=== PATIENT | female | born 1980 | race Caucasian/White ===

== ENCOUNTER 2017-03-31 14:19 | Emergency (ER) | payer BC ==
[~2017-03-31] VITALS: Ht 175.3 cm; Wt 76.7 kg
[~2017-03-31 14:19] MED LIST: IBUP-1050 PO
[2017-03-31 14:32] VITALS: TEMP 36.9; Ht 175.3 cm; Wt 76.7 kg
[2017-03-31 15:22] VITALS: O2SAT 100
[2017-03-31 16:08] LABS: URINE APPEARANCE CLEAR (CLEAR); URINE BILIRUBIN NEG (NEG); URINE COLOR YELLOW; URINE EPITHELIAL CELL AUTO 0-5 /lpf (0-5); URINE NITRITE NEG (NEG); URINE PH 8.5 (4.5-7.5); URINE SPECIFIC GRAVITY 1.016 (1.000-1.030); UROBILINOGEN NEG (NEG); ZZUR CULT IF INDIC CLEAN CATCH NO
[2017-03-31 16:13] LABS: MANUAL MICROSCOPIC REQUIRED? NO; REVIEW REQ? NO
[2017-03-31 16:16] LABS: BASO % 0.7 %; BASO ABS # 0.04 K/uL (0-0.2); COMPLETE YES; EOS % 1.7 %; HEMATOCRIT 37.4 % (37-47); IG% 0.2 %; LYMPH % 31.1 %; LYMPH ABS # 1.67 K/uL (1.2-3.4); MEAN CELL VOLUME 93.7 fL (80-100); MEAN CORPUSCULAR HEMOGLOBIN 31.3 pg (25-34); MEAN CORPUSCULAR HGB CONC 33.4 g/dl (32-36); MEAN PLATELET VOLUME 8.9 fL (7.4-10.4); MONO % 10.1 %; NEUT % 56.2 %; PLATELET COUNT 275 K/uL (130-400); RED BLOOD COUNT 3.99 M/uL (4.2-5.4); WHITE BLOOD COUNT 5.37 K/uL (4.8-10.8)
--- NOTE | 2017-03-31 16:21 | DIAGNOSTIC IMAGING REPORT ---
CHEST ONE VIEW PORTABLE CLINICAL HISTORY: Upper abdominal pain. COMPARISON STUDY: Chest radiograph March 23, 2015. FINDINGS: There is no lucency under the hemidiaphragms to suggest pneumoperitoneum on this exam. Lung volumes are normal. Lungs are clear. There is no pneumothorax or pleural effusion. Cardiac size is normal. Mediastinal contours are normal. There is no evidence of pulmonary edema. IMPRESSION: No acute cardiopulmonary findings. Electronically signed by: Haile Phipps M.D. 03/31/2017 4:20 PM Dictated Date/Time: 03/31/2017 4:19 PM
[2017-03-31 16:37] LABS: BUN/CREATININE RATIO 20.8 (10-20); CALCIUM 8.4 mg/dl (8.5-10.1); CREATININE 0.74 mg/dl (0.60-1.20); POTASSIUM 3.9 mmol/L (3.5-5.1)
[2017-03-31 16:46] LABS: PREG INTERNAL NEGATIVE QC NEG CLEAR BACKGROUND; PREG INTERNAL POSITIVE QC POS CONTROL LINE
[2017-03-31 16:47] LABS: ALB/GLOB RATIO 1.2 (0.9-2); THYROID STIMULATING HORMONE 0.753 uIu/ml (0.300-4.500)
--- NOTE | 2017-03-31 17:17 | EMERGENCY ROOM VISIT NOTE ---
History First contact with patient: 15:25 Chief Complaint: GI ASSESSMENT Stated Complaint: GURGLING/PULSATING IN STOMACH AREA, LIGHTHEADED History of Present Illness The patient is a 36 year old female who presents to the Emergency Room with complaints of abdominal discomfort and chest pain. The patient has a history of left-sided chest pain for the last one year. She states it is a constant dull ache. She has been seen in this emergency department for it. She states that nothing was ever found. The patient states that today she noticed pulsing in the center of her abdomen that lasted approximately an hour and a half. She states it has since stopped but she has never had anything similar in the past. The patient rates her pain a 3/10. She denies any fevers or chills. She denies any nausea, vomiting or diarrhea. She denies any shortness of breath. The patient did travel to [place] 2 weeks ago. She denies any extremity pain or swelling. She is a smoker. She states her grandmother of a ruptured brain aneurysm. She denies any falls or injuries. Review of Systems A 10 system review of systems was completed with positives and pertinent negatives listed in the HPI. Past Medical/Surgical History Medical Problems: (1) Intracranial hypertension, benign Surgical Problems: (1) Porter teeth extracted Social History Smoking Status: Never Smoker Marital Status: Housing Status: lives with family Occupation Status: employed Current/Historical Medications No Active Prescriptions or Reported Meds Allergies Coded Allergies: No Known Allergies (Unverified , 03/31/17) Physical Exam Vital Signs Date Time Temp Pulse Resp B/P (MAP) Pulse Ox O2 Delivery O2 Flow Rate FiO2 03/31/17 17:35 80 18 106/74 98 Room Air 03/31/17 15:26 65 03/31/17 15:22 100 Room Air 03/31/17 14:32 36.9 83 18 146/100 96 Room Air Physical Exam VITALS: Vitals are noted on the nurse's note and reviewed by myself. Vital signs stable. The patient is afebrile. She is not tachycardic, tachypneic or hypoxic. GENERAL: This is a 36-year-old female, in no acute distress, nondiaphoretic, well-developed well-nourished. SKIN: The skin was without rashes, erythema, edema, or bruising. There is no tenting of the skin. Capillary reflex less than 2 seconds. HEAD: Normocephalic atraumatic. EARS: The external ears are normal in appearance. EYES: Pupils equal round and reactive to light and accommodation. Conjunctivae without injection, sclerae without icterus. Extraocular movements intact. NOSE: Patent, turbinates without inflammation or discharge. MOUTH: Mucous membranes moist. Tonsils are not enlarged. Pharynx without erythema or exudate. Uvula midline. Airway patent. Tongue does not deviate. NECK: Supple without nuchal rigidity. No lymphadenopathy. No thyromegaly. Cervical spine is nontender. No JVD. HEART: Regular rate and rhythm without murmurs gallops or rubs. LUNGS: Clear to auscultation bilaterally without wheezes, rales or rhonchi. No retractions or accessory muscle use. ABDOMEN: Positive bowel sounds x 4. There are no abdominal bruits noted. Soft , nontender, without masses or organomegaly. Arroyo sign negative. MUSCULOSKELETAL: No muscle atrophy, erythema, or edema noted. Full range of motion without joint tenderness in all extremities Normal gait. Strength 5/5 throughout. NEURO: Patient was alert and oriented to person place and time. No focal neurological deficits. Medical Decision & Procedures ER Provider Diagnostic Interpretation: Ultrasound, aorta AORTIC ANEURYSM RETRO ANNEMARIE CLINICAL HISTORY: mid abdominal pain, pulsatile mass per patient mass TECHNIQUE: Ultrasound COMPARISON STUDY: None FINDINGS: Normal study. No evidence for aneurysm. IMPRESSION: Normal study CHEST ONE VIEW PORTABLE CLINICAL HISTORY: Upper abdominal pain. COMPARISON STUDY: Chest radiograph March 23, 2015. FINDINGS: There is no lucency under the hemidiaphragms to suggest pneumoperitoneum on this exam. Lung volumes are normal. Lungs are clear. There is no pneumothorax or pleural effusion. Cardiac size is normal. Mediastinal contours are normal. There is no evidence of pulmonary edema. IMPRESSION: No acute cardiopulmonary findings. Laboratory Results 03/31/17 16:05 Red Blood Count 3.99, Mean Corpuscular Volume 93.7, Mean Corpuscular Hemoglobin 31.3, Mean Corpuscular Hemoglobin Concent 33.4, Mean Platelet Volume 8.9, Neutrophils (%) (Auto) 56.2, Lymphocytes (%) (Auto) 31.1, Monocytes (%) (Auto) 10.1, Eosinophils (%) (Auto) 1.7, Basophils (%) (Auto) 0.7, Neutrophils # (Auto ) 3.02, Lymphocytes # (Auto) 1.67, Monocytes # (Auto) 0.54, Eosinophils # (Auto ) 0.09, Basophils # (Auto) 0.04 03/31/17 16:05 Test 03/31/17 15:25 03/31/17 16:05 03/31/17 16:12 03/31/17 16:16 Urine Color YELLOW Urine Appearance CLEAR (CLEAR) Urine pH 8.5 (4.5-7.5) Urine Specific [place] 1.016 (1.000-1.030) Urine Protein NEG (NEG) Urine Glucose (UA) NEG (NEG) Urine Ketones NEG (NEG) Urine Occult Blood TRACE (NEG) Urine Nitrite NEG (NEG) Urine Bilirubin NEG (NEG) Urine Urobilinogen NEG (NEG) Urine Leukocyte Esterase NEG (NEG) Urine WBC (Auto) 0 /hpf (0-5) Urine RBC (Auto) 0-4 /hpf (0-4) Urine Hyaline Casts (Auto) 0 /lpf (0-5) Urine Epithelial Cells (Auto) 0-5 /lpf (0-5) Urine Bacteria (Auto) NEG (NEG) White Blood Count 5.37 K/uL (4.8-10.8) Red Blood Count 3.99 M/uL (4.2-5.4) Hemoglobin 12.5 g/dL (12.0-16.0) Hematocrit 37.4 % (37-47) Mean Corpuscular Volume 93.7 fL (80-100) Mean Corpuscular Hemoglobin 31.3 pg (25-34) Mean Corpuscular Hemoglobin Concent 33.4 g/dl (32-36) Platelet Count 275 K/uL (130-400) Mean Platelet Volume 8.9 fL (7.4-10.4) Neutrophils (%) (Auto) 56.2 % Lymphocytes (%) (Auto) 31.1 % Monocytes (%) (Auto) 10.1 % Eosinophils (%) (Auto) 1.7 % Basophils (%) (Auto) 0.7 % Neutrophils # (Auto) 3.02 K/uL (1.4-6.5) Lymphocytes # (Auto) 1.67 K/uL (1.2-3.4) Monocytes # (Auto) 0.54 K/uL (0.11-0.59) Eosinophils # (Auto) 0.09 K/uL (0-0.5) Basophils # (Auto) 0.04 K/uL (0-0.2) RDW Standard Deviation 38.9 fL (36.4-46.3) RDW Coefficient of Variation 11.3 % (11.5-14.5) Immature Granulocyte % (Auto) 0.2 % Immature Granulocyte # (Auto) 0.01 K/uL (0.00-0.02) D-Dimer 240 ug/L FEU (0-500) Anion Gap 7.0 mmol/L (3-11) Est Creatinine Clear Calc Drug Dose 112.0 ml/min Estimated GFR () 122.5 Estimated GFR (Non- 105.7 BUN/Creatinine Ratio 20.8 (10-20) Calcium Level 8.4 mg/dl (8.5-10.1) Total Bilirubin 0.3 mg/dl (0.2-1) Aspartate Amino Transf (AST/SGOT) 14 U/L (15-37) Alanine Aminotransferase (ALT/SGPT) 21 U/L (12-78) Alkaline Phosphatase 50 U/L (45-117) Total Protein 6.9 gm/dl (6.4-8.2) Albumin 3.8 gm/dl (3.4-5.0) Globulin 3.1 gm/dl (2.5-4.0) Albumin/Globulin Ratio 1.2 (0.9-2) Lipase 91 U/L (73-393) Thyroid Stimulating Hormone (TSH) 0.753 uIu/ml (0.300-4.500) Human Chorionic Gonadotropin, Qual NEG (NEG) Bedside Troponin I < 0.030 ng/ml (0-0.045) Bedside Lactic Acid Venous 0.54 mmol/L (0.90-1.70) Procedure The patient was monitored on a card cutter. They maintained a normal sinus rhythm without ectopy. ECG Indication: chest pain Rate (beats per minute): 63 Rhythm: normal sinus Findings: no acute ischemic change Change: no significant change ED Course The patient was seen and examined. Previous visits were reviewed. The patient does not have a fever or leukocytosis. She does not have any significant electrolyte abnormalities. Troponin is not elevated. TSH is within normal limits. test was negative. D-dimer was not elevated. Urinalysis is negative. Chest x-ray does not reveal any acute abnormality Ultrasound of the abdomen does not reveal any significant abnormality or aneurysm. The patient presents to the emergency department with several complaints. She has had left-sided chest pain for the last one year. It has been constant and daily. Troponin is not elevated. She has also had recent travel but a d-dimer is not elevated. She reported a pulsatile mass in her mid abdomen earlier today that lasted for approximately 1.5 hours. It has completely resolved. There is no evidence for abdominal aortic aneurysm. The patient has no abdominal tenderness on examination. The patient should contact her family doctor to schedule a follow-up appointment for further evaluation and management. She should return to the ER with any worsening symptoms. The case was discussed with Dr. Willis who agrees with the assessment and treatment plan. Blood pressure screening: The patient was found to have normal blood pressure on screening and does not require follow-up Medication Reconciliation: I attest that I have personally reviewed the patient' s current medication list. Medical Decision DIFFERENTIAL DIAGNOSIS: Aortic dissection, myocarditis, pericarditis, cervical disc disease, costochondritis, herpes zoster, rib fracture, pleuritis, pneumonia , pulmonary embolus, tension pneumothorax, anxiety disorder, somatoform disorder , choledocholithiasis, status, esophagitis, esophageal spasm, esophageal reflux , esophageal rupture, pancreatitis, peptic ulcer disease, cardiac ischemia, ST elevation LA, acute coronary syndrome, arrhythmia, coronary artery vasospasm. vavular heart disease, coronary artery disease, among others. Impression Primary Impression: Left sided chest pain Additional Impression: Abdominal aortic pulsation Departure Information Dispostion Home / Self-Care Condition GOOD Prescriptions No Active Prescriptions or Reported Meds Referrals Mike Whitten, D.O. (PCP) Patient Instructions My [facility] [place] Additional Instructions Contact your family doctor to schedule a follow up appointment for further evaluation and management Return with worsening symptoms, abdominal pain, trouble breathing Problem Qualifiers
--- NOTE | 2017-03-31 17:33 | DIAGNOSTIC IMAGING REPORT ---
Ultrasound, aorta AORTIC ANEURYSM RETRO ANNEMARIE CLINICAL HISTORY: mid abdominal pain, pulsatile mass per patient mass TECHNIQUE: Ultrasound COMPARISON STUDY: None FINDINGS: Normal study. No evidence for aneurysm. IMPRESSION: Normal study Electronically signed by: Lior Aldridge M.D. 03/31/2017 5:31 PM Dictated Date/Time: 03/31/2017 5:31 PM
[2017-03-31 17:35] VITALS: BP 106/74; PULSE 80; O2SAT 98
== END 2017-03-31 18:14 | disposition home or self-care (01) ==
LOC: C.EDB 14:21 → C.EDA 18:14
DX: R07.9 Chest pain, unspecified (principal); I71.4 Abdominal aortic aneurysm, without rupture; I10 Essential (primary) hypertension

== ENCOUNTER → 2017-06-27 | Outpatient (CLI) | payer BC ==
[2017-06-27 08:26] LABS: HEMATOCRIT 39.7 % (37-47); MEAN CORPUSCULAR HGB CONC 34.8 g/dl (32-36); MEAN PLATELET VOLUME 9.1 fL (7.4-10.4); PLATELET COUNT 282 K/uL (130-400); RED BLOOD COUNT 4.18 M/uL (4.2-5.4); WHITE BLOOD COUNT 3.75 K/uL (4.8-10.8)
[2017-06-27 09:01] LABS: THYROID STIMULATING HORMONE 1.4 uIu/ml (0.300-4.500)
[2017-06-27 09:57] LABS: CALCULATED INSULIN SENSITIVITY 0.382; GLUCOSE LOG 1.9445; GLUCOSE,FASTING 88 mg/dl; INSULIN FASTING 4.7 mU/L (3-25); INSULIN LOG 0.6721; PROLACTIN 43.81 ng/mL
[2017-06-27 10:08] LABS: RUBELLA SCREEN IgG (AT CCH) IMMUNE (IMMUNE)
== END | disposition home or self-care (01) ==
LOC: C.LAB 07:59
PROVIDERS: ATTEND Obstetrics & Gynecology
DX: Z31.41 Encounter for fertility testing (principal)

== ENCOUNTER → 2017-07-06 | Outpatient (CLI) | payer BC ==
--- NOTE | 2017-07-06 11:43 | DIAGNOSTIC IMAGING REPORT ---
HYSTEROSALPINGOGRAM CLINICAL HISTORY: FERTILITY TESTING COMPARISON STUDY: No previous studies for comparison. FINDINGS: Fluoroscopic assistance was provided during hysterosalpingography. 24 seconds of fluoroscopic time was utilized. 4 fluoroscopic spot images were provided for interpretation. The uterus is somewhat T-shaped. Both fallopian tubes filled a normal fashion. There is free spillage bilaterally. IMPRESSION: Both fallopian tubes were patent. Electronically signed by: Marek Soria M.D. 07/06/2017 11:41 AM Dictated Date/Time: 07/06/2017 11:41 AM
--- NOTE | 2017-07-06 14:50 | OPERATIVE REPORT ---
DATE OF OPERATION: 07/06/2017 PREOPERATIVE DIAGNOSIS: Female infertility. POSTOPERATIVE DIAGNOSIS: Female infertility. PROCEDURE: Hystersalpingogram. SURGEON: Dr. Sandra. IMAGING: Dr. Soria. FINDINGS: Patent tubes bilaterally. DESCRIPTION OF PROCEDURE: Using sterile technique, speculum was placed in the vagina, single tooth tenaculum on anterior lip of the cervix. Cervical acorn device attached to the cervix, attached to the Allis. Then dye injected and imaging results obtained revealing a bilateral spill of both fallopian tubes. At the end of the procedure, the patient tolerated well. Instruments removed from the cervix and vagina. Sponge and instrument counts correct. I attest to the content of the Intraoperative Record and any orders documented therein. Any exception s are noted below.
== END | disposition home or self-care (01) ==
LOC: C.RAD 10:31
PROVIDERS: ATTEND Obstetrics & Gynecology
DX: Z31.41 Encounter for fertility testing (principal)

== ENCOUNTER → 2018-02-17 | Outpatient (CLI) | payer BC ==
[2018-02-17 11:33] LABS: PROLACTIN 38.62 ng/mL
[2018-02-17 12:12] LABS: HEP C IGG 13 YRS+OLDER_RFLX NEG (NEG)
== END | disposition home or self-care (01) ==
LOC: C.LABBC 08:25
PROVIDERS: ATTEND Specialist
DX: Z31.430 Encounter of female for testing for genetic disease carrier status for procreative management (principal); Z31.41 Encounter for fertility testing

== ENCOUNTER → 2018-05-30 | Outpatient (CLI) | payer BC | END | disposition home or self-care (01) | LOC: C.LAB1850 07:09 | PROVIDERS: ATTEND Specialist | DX: O09.00 Supervision of pregnancy with history of infertility, unspecified trimester (principal) ==

== ENCOUNTER 2019-08-21 09:07 | Inpatient (IN) ==
--- NOTE | 2019-08-14 14:22 | Anesthesiology Consultation ---
Date of Service August 14, 2019 Assessment & Plan (1) Encounter for pre-operative examination: Hx intracranial hypertension (2013)-- pressure headaches, vision changes, dizziness- was on medication x 6-9 months (symptoms resolved/medications discontinued). Reviewed with Dr. Alvarado. Chart Review Chart Review: Pending: Refer to Additional Notes / Consult section (pending preop labs) and Patient seen in Pre Admission Testing Teaching & Discussion Pre-Anesthesia Teaching/Discussion Notes: Instructed NPO after midnight before surgery,except medications with 15 cc of water. Medication instructions provided according to the PAT guidelines. History Surgery Operation Date: 08/21/19 10:30 Proposed Procedures p Primary Section Delivery - Quang Orellana MD Height/Weight Height: 5 ft 9 in Weight: 86.8 kg Allergies Allergy/AdvReac Type Severity Reaction Status Date / Time No Known Allergies Allergy Verified 08/10/19 09:21 Medications Home Medications Medication Instructions Recorded Confirmed Last Taken PNV cmb#95-ferrous fumarate-FA 1 tab PO DAILY 08/08/19 08/10/19 08/08/19 08:00 [] Past Medical History Medical History Intracranial hypertension, benign 2014 -- pressure headaches, vision changes, dizziness- was on medication x 6- 9 months (symptoms resolved/medications discontinued) Depression Hip dysplasia congenital Exercise / Class Metabolic Activity II 4-5 Yardwork/Stairs/Walk up hill Past Surgical History Surgical History History of gynecologic surgery IN VITRO PROCEDURE FOR EGG RETRIEVAL Hx of wisdom tooth extraction Past Anesthesia History No Hx of Anesthesia Complications and No Family Hx of Anesthesia Complications History of PONV No Hx of PONV and No Hx of Motion Sickness Social History Smoking Status: Former smoker Do You Dip or Chew Tobacco: No Smoking End Date: QUIT 5 YEARS AGO Hx Alcohol Use: No Hx Substance Use: No substance use type: does not use Review of Systems Mild related heartburn. Patient denies chest pain, shortness of breath, dyspnea on exertion, cough, wheezing, palpitations. Physical Exam Vital Signs VITALS BP 112/81 P 78 TEMP 97.9 SP02 98%RA RESP 18 PHYSICAL Full neck and c-spine range of motion. Full TMJ range of motion. TMD 3 finger breaths Mallampati Score 2 Dentition: intact Lungs: clear throughout to auscultation Cardiac: regular rate and rhythm, no murmurs noted Spine: normal Carotid arteries: negative bruit Extremities: no edema Testing Laboratory Results 08/14/19 14:03
[2019-08-14 14:26] LABS: Basophils # (auto) 0.02 K/uL (0-0.2); Basophils % (auto) 0.3 %; Eosinophils # (auto) 0.03 K/uL (0-0.5); Eosinophils % (auto) 0.4 %; Hematocrit (blood only) 40.4 % (37-47); Hemoglobin 14.4 g/dL (12.0-16.0); Immature Granulocytes # (auto) 0.02 K/uL (0.00-0.02); Immature Granulocytes % (auto) 0.3 %; Lymphocytes # (auto) 1.57 K/uL (1.2-3.4); Lymphocytes % (auto) 20.9 %; Mean Corpuscular Hemoglobin 33.1 pg (25-34); Mean Corpuscular Hgb Conc 35.6 g/dL (32-36); Mean Corpuscular Volume 92.9 fL (80-100); Mean Platelet Volume 9.9 fL (7.4-10.4); Monocytes # (auto) 0.68 K/uL (0.11-0.59); Monocytes % (auto) 9.1 %; Neutrophils # (auto) 5.19 K/uL (1.4-6.5); Platelet Count 305 K/uL (130-400); RDW Coefficient of Variation 11.8 % (11.5-14.5); Red Blood Count 4.35 M/uL (4.2-5.4); White Blood Count 7.51 K/uL (4.8-10.8)
[~2019-08-21 09:07] MED LIST changes: +CEFAZOLIN 2,000 MG in SYRINGE 0 ML IV SCH; +CITRIC ACID/SODIUM CITRATE 15 ML UDC PO SCH; -IBUP-1050 PO; +LACTATED RINGER'S 1,000 ML IV SCH
[2019-08-21] MEDS ORDERED: OXYTOCIN 10 UNITS/ML VIAL ONE ×2 (11:20→13:28)
[2019-08-21] MEDS ORDERED: MoRPHine SULFATE PF 1 MG/ML 10 ML AMP/VIAL ONE (11:21)
[2019-08-21] MEDS ORDERED: fentaNYL citrate 100 MCG/2 ML VIAL ONE (11:21)
[2019-08-21] MEDS ORDERED: ONDANSETRON INJ 2 MG/ML 2 ML VIAL IV PRN ×2 (11:53→13:06)
[2019-08-21] MEDS ORDERED: DiphenhydrAMINE HCL 50 MG/ML VIAL IV PRN ×2 (11:53→13:06)
[2019-08-21] MEDS ORDERED: BENZOCAINE 20% AER SPR 82.5 GM CAN EXT PRN (11:53)
[2019-08-21] MEDS ORDERED: SENNA 8.6 MG TAB PO PRN (11:53)
[2019-08-21] MEDS ORDERED: OXYCODONE/ACETAMINOPHEN 5mg/325mg TAB PO PRN (11:53)
[2019-08-21] MEDS ORDERED: HYDROCORTISONE ACETATE 25 MG SUPP PR PRN (11:53)
[2019-08-21] MEDS ORDERED: DIPHTHERIA/TETANUS/PERTUSSIS 0.5 ML SYR/VIAL IM ONE (11:53)
[2019-08-21] MEDS ORDERED: PROMETHAZINE HCL 25 MG in SODIUM CHLORIDE 0.9% 50 ML IV PRN ×2 (11:53→13:06)
[2019-08-21] MEDS ORDERED: KETOROLAC 30 MG/ML VIAL IV PRN (11:53)
[2019-08-21] MEDS ORDERED: MAGNESIUM HYDROXIDE SUSP 30 ML UDC PO PRN (11:53)
[2019-08-21] MEDS ORDERED: SUPERCREAM 0.870% 15 GM JAR EXT PRN (11:53)
[2019-08-21] MEDS ORDERED: LACTATED RINGER'S 1,000 ML IV SCH ×3 (12:00→14:20)
--- NOTE | 2019-08-21 12:14 | History & Physical Bridge Note ---
Date of Service August 21, 2019 History & Physical Bridge Note I have examined the patient, reviewed the History & Physical and in the interval since the performance of the History & Physical I have noted the following changes of clinical significance: no changes noted Bed side US: Complete breech presentation FHR 140's She desires Primary C Section as scheduled All questions were answered
[2019-08-21] MEDS ORDERED: ePHEDrine sulfate 50 MG/ML AMP IV PRN (13:06)
[2019-08-21] MEDS ORDERED: NALOXONE HCL 1 MG in SODIUM CHLORIDE 0.9% 1000ML 1,000 ML IV PRN (13:06)
[2019-08-21] MEDS ORDERED: NALOXONE HCL 0.4 MG/1 ML VIAL/CARP IV PRN (13:06)
[2019-08-21] MEDS ORDERED: NALOXONE HCL 0.08 MG in SYRINGE 1.8 ML IV PRN (13:06)
[2019-08-21] MEDS ORDERED: MoRPHine SULFATE PF 1 MG/ML 10 ML AMP/VIAL INT SPINAL ONE (13:06)
[2019-08-21] MEDS ORDERED: LACTATED RINGER'S 500 ML IV PRN (13:06)
[2019-08-21] MEDS ORDERED: NALBUPHINE HCL INJ 10 MG/ML AMP IV PRN (13:06)
[2019-08-21] MEDS ORDERED: HYDROmorphone INJ 0.5 MG/0.5 ML SYR IV PRN (13:06)
[2019-08-21] MEDS ORDERED: NO NARCOTICS OR SEDATIVES SCH (13:15)
[2019-08-21] MEDS ORDERED: SODIUM CHLORIDE 0.9% 1000ML 1,000 ML IV SCH (13:15)
[2019-08-21] MEDS ORDERED: DC INTRASPINAL MORPHINE SCH (13:15)
[2019-08-21] MEDS ORDERED: ONDANSETRON INJ 2 MG/ML 2 ML VIAL ONE (13:35)
--- NOTE | 2019-08-21 14:09 | Post Operative Brief Note ---
Immediate Post Op Note v1 Date of Surgery August 21, 2019 Pre & Post Diagnosis Operation Date: 08/21/19 11:10 Pre-Op Diagnosis: Breech presentation at term Post-Op Diagnosis: Same as pre-op I identified the patient and participated in the time-out.: Yes Procedure Operation Date: 08/21/19 11:10 Actual Procedures p Section in LD, delivery of live female child at 1321(Not Applicable) - Quang Orellana MD Surgeon Quang Orellana MD Irrigation Laborer RONY Simpson Estimated Blood Loss 600 Findings Consistent with Post-Op Diagnosis Fluids 2300 ML LR Drains Le Catheter (100 ML CLEAR) Anesthesia Type Spinal Complications none Disposition Accompanied Patient To Recovery: Yes Disposition: L&D
[2019-08-21] MEDS ORDERED: SURGICEL ABSORB HEMOSTAT 2IN X 14IN TOP ONE (14:43)
--- NOTE | 2019-08-21 15:12 | Operative Report ---
DATE OF OPERATION: 08/21/2019 PREOPERATIVE DIAGNOSES: The patient is a 38-year-old G1, P0, at 39 weeks and 3 days of gestation, persistent breech presentation at term, declined external cephalic version, desires primary section. POSTOPERATIVE DIAGNOSES: The patient is a 38-year-old G1, P0, at 39 weeks and 3 days of gestation, persistent breech presentation at term, declined external cephalic version, desires primary section. PROCEDURE: Primary low transverse with Pfannenstiel skin incision. SURGEON: Quang Orellana MD TRANSPORT ENGINEER: RONY Simpson. ESTIMATED BLOOD LOSS: 600 mL. FLUIDS: 2300 mL of lactated ringer's. DRAINS: Le catheter drained 100 mL of clear urine. ANESTHESIA: Spinal, Dr. Arora. COMPLICATIONS: None. FINDINGS: Baby was a viable female infant delivered at 1321 in the afternoon in complete breech presentation, Apgars were 8/9 and weight was 2730 grams (6 pounds). DESCRIPTION OF PROCEDURE: The patient was taken to the operating room where spinal anesthesia was given without difficulty. She was placed in dorsal supine position with a leftward tilt. She was prepared and draped in the usual sterile fashion. A Pfannenstiel skin incision was made and carried through to the underlying layer of fascia with the Bovie. Fascia was incised in the midline and incision was extended laterally with the help of Rodriguez scissors. Lower aspect of the fascial incision was then grasped with 2 Heather clamps, elevated, underlying rectus muscles were dissected off sharply with Rodriguez scissors. Upper aspect of the fascial incision was then grasped with 2 Heather clamps, elevated, underlying rectus muscles were dissected off sharply with Rodriguez scissors. Rectus muscles were in the midline and the peritoneum was entered bluntly with fingers. Peritoneal incision was extended superiorly and inferiorly with good visualization of the bladder. Bladder blade was inserted. Vesicouterine peritoneum was identified, grasped with pickups, entered sharply with Metzenbaum scissors and bladder flap was created digitally and bladder blade was reinserted. Lower uterine segment was incised in transverse fashion, incision was extended laterally with the help of bandage scissors. Membranes were ruptured. Clear fluid was obtained. Baby's buttocks with the feet together were the presenting part. The Feet and legs were delivered first and then the buttocks and then the body and then arms and then the head without difficulty. Baby was dried and mouth and nose were suctioned on mother. The patient requested to collect cord blood for private banking. Per the kit instruction, delayed cord clamp was done at 45 seconds. Baby was handed to the waiting pediatric team with Dr. Yap. Then cord blood was collected in its special bag as instructed and then placenta was delivered manually as intact and complete. Uterus was exteriorized, cleared of all clots and debris. Fundus was firm. There found to be very small, about half centimeter in size subserosal fibroids on the posterior uterus and the fundus and there noted to be a 2 x 2 cm posterior submucous leiomyoma during the manual exam of uterine cavity. Uterine incision was repaired with 0 Vicryl in a running locked fashion and a second imbricating layer was placed with 0 Vicryl in a running locked fashion. Excellent hemostasis was achieved. Cul-de-sac was irrigated with warm normal saline and suctioned. and then the uterus was returned to the patient's abdomen. The pelvis was irrigated with warm normal saline and suctioned and incision was checked again hemostatic. Parietal peritoneum was reapproximated with 3-0 Vicryl in a running fashion and the rectus muscles were reapproximated with the same suture in a running fashion and excellent hemostasis was achieved on the muscles and under the fascia. The rectal fascia was reapproximated with 0 Vicryl in a running fashion. Subcuticular fat tissue was brought together with 3-0 Vicryl in a running fashion. Skin was closed with 4-0 Monocryl in a subcuticular fashion. The patient tolerated the procedure well. Sponge, lap, needle count was correct x3. No complications happened. I was present during whole procedure. The patient was given 2 grams of cefazolin before surgery. She was taken to recovery room in stable condition. I attest to the content of the Intraoperative Record and any orders documented therein. Any exceptions are noted below. SHANNOND
--- NOTE | 2019-08-21 15:38 | Anesthesiology Progress Note ---
Date of Service August 21, 2019 Anesthesia Post Procedure Vital Signs Vital Signs: Temp Pulse Pulse Resp BP BP Pulse Ox 08/21/19 15:36 70 100 08/21/19 15:31 68 100 08/21/19 15:28 61 128/85 08/21/19 15:26 66 96 08/21/19 15:21 75 99 08/21/19 15:18 67 135/91 08/21/19 15:16 71 99 08/21/19 15:11 70 99 08/21/19 15:08 67 67 130/86 130/86 08/21/19 15:06 66 98 08/21/19 15:01 64 99 08/21/19 14:58 63 63 20 129/81 129/81 08/21/19 14:56 64 97 08/21/19 14:51 65 97 08/21/19 14:48 65 138/78 08/21/19 14:46 71 98 08/21/19 14:45 18 08/21/19 14:40 73 99 08/21/19 14:38 67 141/78 H 08/21/19 14:35 69 18 99 08/21/19 14:30 73 96 08/21/19 14:28 71 132/75 92 08/21/19 14:25 71 18 100 08/21/19 14:20 64 100 08/21/19 14:15 36.4 C L 71 18 120/67 99 08/21/19 12:27 74 100 08/21/19 12:22 71 100 08/21/19 12:17 71 99 08/21/19 12:12 69 100 08/21/19 12:07 72 100 08/21/19 12:02 73 100 08/21/19 11:57 73 100 08/21/19 11:52 72 100 08/21/19 09:40 69 136/90 08/21/19 09:37 36.7 C 16 Transfer of Care Handoff Completed per policy Notes Mental Status: alert / awake / arousable Patient Amnestic to Procedure: Yes Nausea / Vomiting: adequately controlled Pain: adequately controlled Airway Patency, RR, SpO2: stable & adequate BP & HR: stable & adequate Hydration State: stable & adequate Neuraxial Anesthesia: was administered and sensory block is resolving Anesthetic Complications: no major complications apparent and Pt Satisfied with anesthetic care
[2019-08-21] MEDS: OXYTOCIN 20 UNITS in LACTATED RINGER'S 1,000 ML IV SCH (16:49)
[2019-08-21] MEDS: KETOROLAC 30 MG/ML VIAL IV PRN ×2 (17:35→23:37)
[2019-08-21] MEDS: DOCUSATE SODIUM 100 MG CAP PO SCH (20:40)
[2019-08-21] MEDS ORDERED: LACTATED RINGER'S 500 ML IV ONE (22:11)
--- NOTE | 2019-08-21 22:15 | Obstetrical Progress Note ---
Date of Service August 21, 2019 Subjective Patient is seen and examined. She feels well, no complaints. Pain is under control with oral meds. Tolerating clear diet with out N&V Flatus negative BM Bleeding is minimal No LOVELL/ Change in vision/fever/ chills/ CP/ SOB/ N&V/ Leg pain Breast feeding feeding without problems Vital Signs Temp Pulse Pulse Resp BP BP BP 08/21/19 22:02 18 08/21/19 21:12 18 08/21/19 20:10 36.4 C L 73 18 133/84 08/21/19 19:15 18 08/21/19 17:03 36.3 C L 69 19 132/89 136/89 08/21/19 16:21 65 08/21/19 16:18 36.3 C L 64 20 143/82 H 08/21/19 16:16 65 08/21/19 16:11 65 08/21/19 16:08 67 133/87 08/21/19 16:06 76 08/21/19 16:01 66 08/21/19 15:58 71 125/87 08/21/19 15:56 68 08/21/19 15:51 66 08/21/19 15:48 68 20 132/86 08/21/19 15:46 71 08/21/19 15:41 76 08/21/19 15:38 67 141/90 H 08/21/19 15:36 70 08/21/19 15:31 68 08/21/19 15:28 61 128/85 08/21/19 15:26 66 08/21/19 15:21 75 08/21/19 15:19 20 08/21/19 15:18 36.3 C L 67 20 135/91 08/21/19 15:16 71 08/21/19 15:11 70 08/21/19 15:08 67 67 130/86 130/86 08/21/19 15:06 66 08/21/19 15:01 64 08/21/19 14:58 63 63 20 129/81 129/81 08/21/19 14:56 64 08/21/19 14:51 65 08/21/19 14:48 65 138/78 08/21/19 14:46 71 08/21/19 14:45 18 08/21/19 14:40 73 08/21/19 14:38 67 141/78 H 08/21/19 14:35 69 18 08/21/19 14:30 73 08/21/19 14:28 71 132/75 08/21/19 14:25 71 18 08/21/19 14:20 64 08/21/19 14:15 36.4 C L 71 18 120/67 08/21/19 12:27 74 08/21/19 12:22 71 08/21/19 12:17 71 08/21/19 12:12 69 08/21/19 12:07 72 08/21/19 12:02 73 08/21/19 11:57 73 08/21/19 11:52 72 Pulse Ox Pulse Ox 08/21/19 22:02 100 08/21/19 21:12 100 08/21/19 20:10 100 08/21/19 19:15 100 08/21/19 17:03 100 100 08/21/19 16:21 100 08/21/19 16:18 08/21/19 16:16 100 08/21/19 16:11 100 08/21/19 16:08 08/21/19 16:06 100 08/21/19 16:01 100 08/21/19 15:58 08/21/19 15:56 100 08/21/19 15:51 100 08/21/19 15:48 08/21/19 15:46 99 08/21/19 15:41 100 08/21/19 15:38 08/21/19 15:36 100 08/21/19 15:31 100 08/21/19 15:28 08/21/19 15:26 96 08/21/19 15:21 99 08/21/19 15:19 08/21/19 15:18 08/21/19 15:16 99 08/21/19 15:11 99 08/21/19 15:08 08/21/19 15:06 98 08/21/19 15:01 99 08/21/19 14:58 08/21/19 14:56 97 08/21/19 14:51 97 08/21/19 14:48 08/21/19 14:46 98 08/21/19 14:45 08/21/19 14:40 99 08/21/19 14:38 08/21/19 14:35 99 08/21/19 14:30 96 08/21/19 14:28 92 08/21/19 14:25 100 08/21/19 14:20 100 08/21/19 14:15 99 08/21/19 12:27 100 08/21/19 12:22 100 08/21/19 12:17 99 08/21/19 12:12 100 08/21/19 12:07 100 08/21/19 12:02 100 08/21/19 11:57 100 08/21/19 11:52 100 Intake & Output 08/21/19 08/21/19 08/21/19 06:59 14:59 22:59 Output Total 200 / 200 Balance -200 / -200 Weight 84.368 kg Output: Urine Amount (Catheter) 200 / 200 Le/Indwelling 200 / 200 UOP 100 ml / 5 hours PE: General: Alert, orientedx3, NAD CVS: S1S2 RRR Lungs; CTAB Abd: soft, NT, ND, BS+, fundus firm, below Umbilicus Incision: Clean, dry, intact Perineum intact, Lochia rubra minimal Ext; NT, no edema, SVCDs on AP: 38 yo s/p C Section, pod# 0 VSS, borderline BP's, asymptomatic LOW UOP, most likely dehydrated, 3rd Csection of the day Afebrile doing well Plan labs, IVF bolus Continue to monitor closely All questions were answered Results & Data Vital Signs (Past 12 Hours) Vital Signs Temp Pulse Pulse Resp BP BP BP 08/21/19 22:02 18 08/21/19 21:12 18 08/21/19 20:10 36.4 C L 73 18 133/84 08/21/19 19:15 18 08/21/19 17:03 36.3 C L 69 19 132/89 136/89 08/21/19 16:21 65 08/21/19 16:18 36.3 C L 64 20 143/82 H 08/21/19 16:16 65 08/21/19 16:11 65 08/21/19 16:08 67 133/87 08/21/19 16:06 76 08/21/19 16:01 66 08/21/19 15:58 71 125/87 08/21/19 15:56 68 08/21/19 15:51 66 08/21/19 15:48 68 20 132/86 08/21/19 15:46 71 08/21/19 15:41 76 08/21/19 15:38 67 141/90 H 08/21/19 15:36 70 08/21/19 15:31 68 08/21/19 15:28 61 128/85 08/21/19 15:26 66 08/21/19 15:21 75 08/21/19 15:19 20 08/21/19 15:18 36.3 C L 67 20 135/91 08/21/19 15:16 71 08/21/19 15:11 70 08/21/19 15:08 67 67 130/86 130/86 08/21/19 15:06 66 08/21/19 15:01 64 08/21/19 14:58 63 63 20 129/81 129/81 08/21/19 14:56 64 08/21/19 14:51 65 08/21/19 14:48 65 138/78 08/21/19 14:46 71 08/21/19 14:45 18 08/21/19 14:40 73 08/21/19 14:38 67 141/78 H 08/21/19 14:35 69 18 08/21/19 14:30 73 08/21/19 14:28 71 132/75 08/21/19 14:25 71 18 08/21/19 14:20 64 08/21/19 14:15 36.4 C L 71 18 120/67 08/21/19 12:27 74 08/21/19 12:22 71 08/21/19 12:17 71 08/21/19 12:12 69 08/21/19 12:07 72 08/21/19 12:02 73 08/21/19 11:57 73 08/21/19 11:52 72 Pulse Ox Pulse Ox 08/21/19 22:02 100 08/21/19 21:12 100 08/21/19 20:10 100 08/21/19 19:15 100 08/21/19 17:03 100 100 08/21/19 16:21 100 08/21/19 16:18 08/21/19 16:16 100 08/21/19 16:11 100 08/21/19 16:08 08/21/19 16:06 100 08/21/19 16:01 100 08/21/19 15:58 08/21/19 15:56 100 08/21/19 15:51 100 08/21/19 15:48 08/21/19 15:46 99 08/21/19 15:41 100 08/21/19 15:38 08/21/19 15:36 100 08/21/19 15:31 100 08/21/19 15:28 08/21/19 15:26 96 08/21/19 15:21 99 08/21/19 15:19 08/21/19 15:18 08/21/19 15:16 99 08/21/19 15:11 99 08/21/19 15:08 08/21/19 15:06 98 08/21/19 15:01 99 08/21/19 14:58 08/21/19 14:56 97 08/21/19 14:51 97 08/21/19 14:48 08/21/19 14:46 98 08/21/19 14:45 08/21/19 14:40 99 08/21/19 14:38 08/21/19 14:35 99 08/21/19 14:30 96 08/21/19 14:28 92 08/21/19 14:25 100 08/21/19 14:20 100 08/21/19 14:15 99 08/21/19 12:27 100 08/21/19 12:22 100 08/21/19 12:17 99 08/21/19 12:12 100 08/21/19 12:07 100 08/21/19 12:02 100 08/21/19 11:57 100 08/21/19 11:52 100
[2019-08-21 22:45] LABS: Basophils # (auto) 0.02 K/uL (0-0.2); Basophils % (auto) 0.2 %; Eosinophils # (auto) 0.03 K/uL (0-0.5); Eosinophils % (auto) 0.3 %; Hematocrit (blood only) 32.7 % (37-47); Hemoglobin 11.5 g/dL (12.0-16.0); Immature Granulocytes # (auto) 0.02 K/uL (0.00-0.02); Immature Granulocytes % (auto) 0.2 %; Lymphocytes # (auto) 1.21 K/uL (1.2-3.4); Lymphocytes % (auto) 10.7 %; Mean Corpuscular Hgb Conc 35.2 g/dL (32-36); Mean Corpuscular Volume 93.7 fL (80-100); Mean Platelet Volume 9.4 fL (7.4-10.4); Monocytes # (auto) 0.81 K/uL (0.11-0.59); Monocytes % (auto) 7.2 %; Neutrophils # (auto) 9.21 K/uL (1.4-6.5); Neutrophils % (auto) 81.4 %; Platelet Count 219 K/uL (130-400); RDW Coefficient of Variation 11.7 % (11.5-14.5); RDW Standard Deviation 39.6 fL (36.4-46.3); Red Blood Count 3.49 M/uL (4.2-5.4)
[2019-08-21] MEDS: SIMETHICONE 80 MG CHEW PO SCH (22:59)
[2019-08-21 23:03] LABS: Albumin Level 2.1 gm/dl (3.4-5.0); BUN Creatinine Ratio 13.8 (10-20); Calcium 8.1 mg/dl (8.5-10.1); Creatinine Clr Calc Pharmacy 123.6 ml/min; Est GFR (African American) 122.8
[2019-08-21 23:06] LABS: Albumin Globulin Ratio 0.7 (0.9-2); Bilirubin,Total 0.4 mg/dl (0.2-1); Globulin 2.9 gm/dl (2.5-4.0)
[2019-08-22] MEDS: OXYTOCIN 20 UNITS in LACTATED RINGER'S 1,000 ML IV SCH (00:53)
[2019-08-22] MEDS ORDERED: LACTATED RINGER'S 1,000 ML IV SCH (05:15)
[2019-08-22] MEDS: KETOROLAC 30 MG/ML VIAL IV PRN (05:33)
[2019-08-22 06:46] LABS: Basophils # (auto) 0.01 K/uL (0-0.2); Basophils % (auto) 0.1 %; Eosinophils # (auto) 0.05 K/uL (0-0.5); Eosinophils % (auto) 0.5 %; Hematocrit (blood only) 29.2 % (37-47); Hemoglobin 10.6 g/dL (12.0-16.0); Immature Granulocytes # (auto) 0.02 K/uL (0.00-0.02); Immature Granulocytes % (auto) 0.2 %; Lymphocytes # (auto) 1.12 K/uL (1.2-3.4); Lymphocytes % (auto) 10.7 %; Mean Corpuscular Hemoglobin 33.1 pg (25-34); Mean Corpuscular Hgb Conc 36.3 g/dL (32-36); Mean Corpuscular Volume 91.3 fL (80-100); Mean Platelet Volume 9.3 fL (7.4-10.4); Monocytes # (auto) 0.92 K/uL (0.11-0.59); Monocytes % (auto) 8.8 %; Neutrophils # (auto) 8.34 K/uL (1.4-6.5); Neutrophils % (auto) 79.7 %; Platelet Count 202 K/uL (130-400); RDW Coefficient of Variation 11.6 % (11.5-14.5); White Blood Count 10.46 K/uL (4.8-10.8)
--- NOTE | 2019-08-22 07:52 | Obstetrical Progress Note ---
Date of Service August 22, 2019 Physical Exam Physical Exam: abdomen soft and non tender incision is clean and dry bandage removed vaginal bleeding scant hgb 10.6 no calf tenderness bowel sounds active and normal ambulating well Results & Data Vital Signs (Past 12 Hours) Vital Signs Temp Pulse Resp BP Pulse Ox 08/22/19 05:37 18 97 08/22/19 04:05 36.8 C 85 18 119/77 98 08/22/19 03:10 18 98 08/22/19 02:00 18 98 08/22/19 01:10 18 99 08/22/19 00:05 18 100 08/21/19 23:00 36.4 C L 74 18 135/84 100 08/21/19 22:02 18 100 08/21/19 21:12 18 100 08/21/19 20:10 36.4 C L 73 18 133/84 100
[2019-08-22] MEDS ORDERED: FERROUS SULFATE 325 MG TAB PO SCH (08:00)
[2019-08-22] MEDS: SIMETHICONE 80 MG CHEW PO SCH ×6 (09:28→20:51)
[2019-08-22] MEDS: DOCUSATE SODIUM 100 MG CAP PO SCH ×2 (09:29→20:51)
[2019-08-22] MEDS: IBUPROFEN 600 MG TAB PO PRN ×4 (09:30→23:23)
[2019-08-22] MEDS: PRENATAL VITAMIN 1 TAB PO SCH (09:30)
--- NOTE | 2019-08-22 10:05 | Anesthesiology Progress Note ---
Date of Service August 22, 2019 Anesthesia Post Procedure Vital Signs Vital Signs: Temp Pulse Pulse Resp BP BP BP 08/22/19 08:00 36.4 C L 80 18 121/78 08/22/19 05:37 18 08/22/19 04:05 36.8 C 85 18 119/77 08/22/19 03:10 18 08/22/19 02:00 18 08/22/19 01:10 18 08/22/19 00:05 18 08/21/19 23:00 36.4 C L 74 18 135/84 08/21/19 22:02 18 08/21/19 21:12 18 08/21/19 20:10 36.4 C L 73 18 133/84 08/21/19 19:15 18 08/21/19 17:03 36.3 C L 69 19 132/89 136/89 08/21/19 16:21 65 08/21/19 16:18 36.3 C L 64 20 143/82 H 08/21/19 16:16 65 08/21/19 16:11 65 08/21/19 16:08 67 133/87 08/21/19 16:06 76 08/21/19 16:01 66 08/21/19 15:58 71 125/87 08/21/19 15:56 68 08/21/19 15:51 66 08/21/19 15:48 68 20 132/86 08/21/19 15:46 71 08/21/19 15:41 76 08/21/19 15:38 67 141/90 H 08/21/19 15:36 70 08/21/19 15:31 68 08/21/19 15:28 61 128/85 08/21/19 15:26 66 08/21/19 15:21 75 08/21/19 15:19 20 08/21/19 15:18 36.3 C L 67 20 135/91 08/21/19 15:16 71 08/21/19 15:11 70 08/21/19 15:08 67 67 130/86 130/86 08/21/19 15:06 66 08/21/19 15:01 64 08/21/19 14:58 63 63 20 129/81 129/81 08/21/19 14:56 64 08/21/19 14:51 65 08/21/19 14:48 65 138/78 08/21/19 14:46 71 08/21/19 14:45 18 08/21/19 14:40 73 08/21/19 14:38 67 141/78 H 08/21/19 14:35 69 18 08/21/19 14:30 73 08/21/19 14:28 71 132/75 08/21/19 14:25 71 18 08/21/19 14:20 64 08/21/19 14:15 36.4 C L 71 18 120/67 08/21/19 12:27 74 08/21/19 12:22 71 08/21/19 12:17 71 08/21/19 12:12 69 08/21/19 12:07 72 08/21/19 12:02 73 08/21/19 11:57 73 08/21/19 11:52 72 Pulse Ox Pulse Ox 08/22/19 08:00 96 08/22/19 05:37 97 08/22/19 04:05 98 08/22/19 03:10 98 08/22/19 02:00 98 08/22/19 01:10 99 08/22/19 00:05 100 08/21/19 23:00 100 08/21/19 22:02 100 08/21/19 21:12 100 08/21/19 20:10 100 08/21/19 19:15 100 08/21/19 17:03 100 100 08/21/19 16:21 100 08/21/19 16:18 08/21/19 16:16 100 08/21/19 16:11 100 08/21/19 16:08 08/21/19 16:06 100 08/21/19 16:01 100 08/21/19 15:58 08/21/19 15:56 100 08/21/19 15:51 100 08/21/19 15:48 08/21/19 15:46 99 08/21/19 15:41 100 08/21/19 15:38 08/21/19 15:36 100 08/21/19 15:31 100 08/21/19 15:28 08/21/19 15:26 96 08/21/19 15:21 99 08/21/19 15:19 08/21/19 15:18 08/21/19 15:16 99 08/21/19 15:11 99 08/21/19 15:08 08/21/19 15:06 98 08/21/19 15:01 99 08/21/19 14:58 08/21/19 14:56 97 08/21/19 14:51 97 08/21/19 14:48 08/21/19 14:46 98 08/21/19 14:45 08/21/19 14:40 99 08/21/19 14:38 08/21/19 14:35 99 08/21/19 14:30 96 08/21/19 14:28 92 08/21/19 14:25 100 08/21/19 14:20 100 08/21/19 14:15 99 08/21/19 12:27 100 08/21/19 12:22 100 08/21/19 12:17 99 08/21/19 12:12 100 08/21/19 12:07 100 08/21/19 12:02 100 08/21/19 11:57 100 08/21/19 11:52 100 Pain Intensity Bilateral Abdomen: Pain Intensity: 1 Transfer of Care Handoff Completed per policy Notes Mental Status: alert / awake / arousable and participated in evaluation Nausea / Vomiting: adequately controlled Pain: adequately controlled Airway Patency, RR, SpO2: stable & adequate BP & HR: stable & adequate Hydration State: stable & adequate Neuraxial Anesthesia: was administered and sensory block resolved Anesthetic Complications: no major complications apparent and Pt Satisfied with anesthetic care Notes: Pt c/o of mild leg edema - encouraged to share this with Ob team. Patient denies headache this morning. Has been up walking without weakness or residual numbness. Patient encouraged to contact anesthesia for any concerns or new headache.
[2019-08-22] MEDS ORDERED: BISACODYL 5 MG TABEC PO SCH (20:00)
[2019-08-22] MEDS ORDERED: ACETAMINOPHEN 325 MG TAB PO PRN (21:08)
[2019-08-23] MEDS: IBUPROFEN 600 MG TAB PO PRN ×3 (03:12→11:26)
[2019-08-23] MEDS: SIMETHICONE 80 MG CHEW PO SCH ×2 (07:49→17:44)
[2019-08-23] MEDS: PRENATAL VITAMIN 1 TAB PO SCH (07:49)
[2019-08-23] MEDS: DOCUSATE SODIUM 100 MG CAP PO SCH (07:50)
[2019-08-23 07:53] LABS: Hematocrit (blood only) 32.9 % (37-47); Hemoglobin 11.2 g/dL (12.0-16.0)
--- NOTE | 2019-08-23 09:51 | Obstetrical Progress Note ---
Date of Service August 23, 2019 Assessment & Plan (1) delivery delivered: POD #2 pt doing well wishes to be discharged home d/c home with instructions Subjective Ambulation: ambulating normally Voiding: no voiding problems Passing Gas:: Yes Diet Tolerance:: clear liquids Lochia:: Small Feeding Type:: breast feeding Review of Systems All systems reviewed & are unremarkable except as noted in HPI & below Physical Exam Constitutional WD/WN, vitals as above well developed and well nourished Eyes PERRL, conjunctivae normal, anicteric sclerae ENMT external ear and nose normal, oropharynx normal Neck trachea midline, no thyromegaly Respiratory normal respiratory effort, lungs clear to auscultation Cardiovascular RRR, no murmur, no edema Chest (Breasts) normal inspection/palpation of breasts Gastrointestinal (Abdomen) normal bowel sounds, soft, nontender, no hepatosplenomegaly Musculoskeletal no cyanosis or clubbing, extremities motor strength 5/5 Skin no rashes, warm and dry + incision (Clean,dry and intact) Neurologic patellar DTR's 2+ bilat, sensation intact Psychiatric A+Ox3, euthymic affect Genitourinary normal external appearance Lymphatic no cervical or axillary lymphadenopathy Results & Data Vital Signs (Past 12 Hours) Vital Signs Temp Pulse Resp BP Pulse Ox 08/22/19 23:20 36.6 C 77 16 119/75 96
[2019-08-23] MEDS ORDERED: BISACODYL 10 MG SUPP PR PRN (11:53)
--- NOTE | 2019-08-25 01:36 | Discharge Summary ---
DETAILS OF ADMISSION: The patient is a 38-year-old G1, P0 at 39 weeks and 3 days of gestation who presented to Labor and Delivery on 08/21/2019 for scheduled primary for persistent breech presentation at term. Declined external cephalic version. She had a primary low transverse , delivered a viable female infant in a breech presentation. See dictated operative note for details. Over the postoperative period, the patient was doing well. Vital signs stable, afebrile. Urine output was adequate. Her dressing was clean, dry and intact. Tolerating regular diet. Fundus was firm. Bleeding was minimal. On postoperative day #1, the patient was doing well. Le was discontinued. She was ambulated, tolerated regular diet, passing gas. Vital signs stable, afebrile. Her H and H were stable at 10.6 and 29.2. On postoperative day #2, the patient was doing well. Vital signs stable, afebrile, tolerating regular diet, passing gas, without problems. Her physical examination was unremarkable. Incision was clean, dry and intact. She desired to be discharged home on postoperative day #2. Discharge instructions were given. Prescriptions were written. She is to be seen in office in a week for incision check.
== END 2019-08-23 14:58 | disposition home or self-care (01) | DRG 788 ==
LOC: 4S2 09:07 → EDSTATUS 10:30

== ENCOUNTER 2022-05-19 05:34 | Inpatient (IN) ==
--- NOTE | 2022-05-07 15:04 | Anesthesiology Consultation ---
Date of Service May 07, 2022 Assessment & Plan (1) Encounter for pre-operative examination: Plan - idiopathic intracranial hypertension: 2013 -- pressure headaches, vision changes, dizziness- was on medication x 6-9 months (symptoms resolved/medications discontinued). 04/2022 denies any current issues..." s/p C- section 2019. - COVID screening: Per roofer applicator on 05/07/2022: Travel screen-returned from [place] 05/03, no known COVID-19 positive contacts or current COVID-19 related symptoms in past 2 weeks. Pt vaccinated. Surgeon arranging preop COVID testing, scheduled 05/17/2022. Awaiting results. Chart Review Chart Review: entry driver operator initiated History Surgery Operation Date: 05/19/22 07:30 Proposed Procedures p Section in LD - Quang Orellana MD Height/Weight Height: 5 ft 9 in Weight: 82.554 kg Allergies Allergy/AdvReac Type Severity Reaction Status Date / Time No Known Allergies Allergy Verified 05/07/22 14:32 Medications Home Medications Medication Instructions Recorded Confirmed Last Taken vit no.95-ferrous 1 tab PO DAILY 08/08/19 05/07/22 08/20/19 11:00 fumarate 28 mg-folic acid 800 mcg tablet () Past Medical History Medical History Depression hx Hip dysplasia congenital Intracranial hypertension, benign 2013 -- pressure headaches, vision changes, dizziness- was on medication x 6- 9 months (symptoms resolved/medications discontinued) 04/2022 denies any current issues Past Surgical History Surgical History (Updated 05/07/22 @ 15:01 by Monica Ferrer PA-C) History of gynecologic surgery IN [facility] PROCEDURE FOR EGG RETRIEVAL Hx of wisdom tooth extraction S/P section 2019: SAB L3-L4 1 attempt. Social History Smoking Status: Former smoker tobacco type: cigarettes Do You Dip or Chew Tobacco: No Smoking End Date: [id number] Hx Alcohol Use: No Hx Substance Use: No substance use type: does not use
[2022-05-19 05:51] LABS: Basophils # (auto) 0.03 K/uL (0-0.2); Basophils % (auto) 0.6 %; Eosinophils # (auto) 0.05 K/uL (0-0.50); Hematocrit (blood only) 39.4 % (34.1-44.9); Hemoglobin 14.1 g/dl (12.0-16.0); Immature Granulocytes # (auto) 0.02 K/uL (0.00-0.02); Immature Granulocytes % (auto) 0.4 %; Lymphocytes # (auto) 1.37 K/uL (1.2-3.4); Lymphocytes % (auto) 26.5 %; Mean Corpuscular Hemoglobin 33.5 pg (25.0-34.0); Mean Corpuscular Hgb Conc 35.8 g/dL (32.0-36.0); Mean Corpuscular Volume 93.6 fL (80.0-100.0); Mean Platelet Volume 9.9 fL (9.4-12.3); Monocytes # (auto) 0.62 K/uL (0.24-0.82); Neutrophils # (auto) 3.08 K/uL (1.4-6.5); Neutrophils % (auto) 59.5 %; Platelet Count 258 K/uL (130-400); RDW Coefficient of Variation 11.4 % (11.5-14.5); RDW Standard Deviation 38.3 fL (36.4-46.3); Red Blood Count 4.21 M/uL (3.93-5.22); White Blood Count 5.17 K/ul (4.8-10.8)
[2022-05-19] MEDS ORDERED: LACTATED RINGER'S 1,000 ML IV SCH (06:00)
[2022-05-19] MEDS ORDERED: CITRIC ACID/SODIUM CITRATE 15 ML UDC PO SCH (06:00)
[2022-05-19] MEDS ORDERED: ceFAZolin 2,000 MG in SYRINGE 0 ML IV SCH (06:00)
[2022-05-19] MEDS ORDERED: NALOXONE HCL 0.4 MG/1 ML VIAL/CARP IV PRN (07:25)
[2022-05-19] MEDS ORDERED: NALOXONE HCL 1 MG in SODIUM CHLORIDE 0.9% 1000ML 1,000 ML IV PRN (07:25)
[2022-05-19] MEDS ORDERED: ePHEDrine sulfate 50 MG/ML AMP IV PRN (07:25)
[2022-05-19] MEDS ORDERED: NALBUPHINE HCL INJ 10 MG/ML AMP IV PRN (07:25)
[2022-05-19] MEDS ORDERED: LACTATED RINGER'S 500 ML IV PRN (07:25)
[2022-05-19] MEDS ORDERED: diphenhydrAMINE 50 MG/ML VIAL IV PRN (07:25)
[2022-05-19] MEDS ORDERED: ONDANSETRON INJ 2 MG/ML 2 ML VIAL IV PRN ×2 (07:25→09:08)
[2022-05-19] MEDS ORDERED: NALOXONE HCL 0.08 MG in SYRINGE 1.8 ML IV PRN (07:25)
[2022-05-19] MEDS ORDERED: MoRPHine SULFATE PF 1 MG/ML 10 ML AMP/VIAL INT SPINAL ONE (07:25)
[2022-05-19] MEDS ORDERED: HYDROmorphone INJ 0.5 MG/0.5 ML SYR IV PRN (07:25)
[2022-05-19] MEDS ORDERED: fentaNYL citrate 100 MCG/2 ML VIAL ONE (07:29)
[2022-05-19] MEDS ORDERED: OXYTOCIN 10 UNITS/ML 10ML VIAL ONE (07:29)
[2022-05-19] MEDS ORDERED: MoRPHine SULFATE PF 1 MG/ML 10 ML AMP/VIAL ONE (07:29)
[2022-05-19] MEDS ORDERED: NO NARCOTICS OR SEDATIVES SCH (07:30)
[2022-05-19] MEDS ORDERED: DC INTRASPINAL MORPHINE SCH (07:30)
[2022-05-19] MEDS ORDERED: SODIUM CHLORIDE 0.9% 1000ML 1,000 ML IV SCH (07:30)
--- NOTE | 2022-05-19 07:33 | History & Physical Bridge Note ---
Date of Service May 19, 2022 History & Physical Bridge Note I have examined the patient, reviewed the History & Physical and in the interval since the performance of the History & Physical I have noted the following changes of clinical significance: no changes noted No ctxs/ LOF/VB +FM's FHR categ I Declined TOLAC/ Declined Tubal sterilization Signed an informed consent for RLTC All questions were answered.
[2022-05-19] MEDS ORDERED: ONDANSETRON INJ 2 MG/ML 2 ML VIAL ONE (08:19)
[2022-05-19] MEDS ORDERED: MAGNESIUM HYDROXIDE SUSP 30 ML UDC PO PRN (09:08)
[2022-05-19] MEDS ORDERED: HYDROCORTISONE ACETATE 25 MG SUPP PR PRN (09:08)
[2022-05-19] MEDS ORDERED: diphenhydrAMINE Capsule 25 MG CAP PO PRN (09:08)
[2022-05-19] MEDS ORDERED: BENZOCAINE 20% AER SPR 82.5 GM CAN EXT PRN (09:08)
[2022-05-19] MEDS ORDERED: MEASLES, MUMPS & RUBELLA VIRUS VIAL SQ ONE (09:08)
[2022-05-19] MEDS ORDERED: DIPHTHERIA/TETANUS/PERTUSSIS 0.5 ML SYR/VIAL IM ONE (09:08)
[2022-05-19] MEDS ORDERED: SENNA 8.6 MG TAB PO PRN (09:08)
--- NOTE | 2022-05-19 09:13 | Post Operative Brief Note ---
Immediate Post Op Note v1 Date of Surgery May 19, 2022 Pre & Post Diagnosis Operation Date: 05/19/22 07:30 Pre-Op Diagnosis: 1. History of prior cesearan section 2. Declines TOLAC/ . Post-Op Diagnosis: SAME I identified the patient and participated in the time-out.: Yes Procedure Operation Date: 05/19/22 07:30 Actual Procedures p Section in LD; Repeat lower uterine transverse section for the of a live girl at 0816(Bilateral) - Quang Orellana MD Surgeon Quang Orellana MD Wastewater Project Manager Dr Golden Estimated Blood Loss 600 Findings Consistent with Post-Op Diagnosis Drains Le Catheter (Le catheter inserted without difficulty. Patent and draining clear yellow urine. ) Anesthesia Type Spinal Complications none
[2022-05-19] MEDS ORDERED: OXYTOCIN 20 UNITS in D5W AND LACTATED RINGERS 1,000 ML IV SCH (10:00)
--- NOTE | 2022-05-19 10:06 | Operative Report (OR) ---
DATE OF SURGERY: 05/19/2022. PREOPERATIVE DIAGNOSES: The patient is a 41-year-old G2, P1-0-0-1 at 39 weeks and 4 days of gestation, IVF , scheduled for repeat section for history of prior section, declined TOLAC/. POSTOPERATIVE DIAGNOSES: The patient is a 41-year-old G2, P1-0-0-1 at 39 weeks and 4 days of gestation, IVF , scheduled for repeat section for history of prior section, declined TOLAC/ PROCEDURE: Repeat low transverse with Pfannenstiel skin incision. SURGEON: Quang Orellana MD. BROKER ASSOCIATE: Judah Golden MD. ESTIMATED BLOOD LOSS: 600 ml. DRAINS: Le catheter drained 60 mL of clear urine. ANESTHESIA: Spinal. ANESTHESIOLOGIST: Dr. Arora. COMPLICATIONS: None. FINDINGS: Baby was a viable female delivered in cephalic presentation at 08:16 am, Apgars were 9 and 9, weight is 3288 gr. Maternal findings: Normal fallopian tubes, ovaries and uterus. DESCRIPTION OF PROCEDURE: The patient was taken to the OR. Spinal was given without difficulty and she was placed in dorsal supine position with a leftward tilt. She was prepared and draped in the usual sterile fashion. A Pfannenstiel skin incision was made and carried through to the underlying layer of fascia with the Bovie. Fascia was incised in the midline and the incision was extended laterally with the help of Rodriguez scissors and then the fascia was dissected from the muscle with Rodriguez scissors superiorly and inferiorly. Rectus muscles were in the midline. Peritoneum was entered bluntly and then the peritoneal incision was extended superiorly and inferiorly with good visualization of the bladder. Bladder blade was inserted. Vesicouterine peritoneum was identified, grasped with pickups, and entered sharply with Metzenbaum scissors. Bladder flap was created digitally and bladder blade was reinserted. Lower uterine segment was incised in transverse fashion. The incision was extended laterally with the help of fingers. Membranes were ruptured. Clear fluid was obtained. Baby's head was delivered without difficulty. Shoulders were delivered with minimal traction and mouth and nose were suctioned. Cord was clamped x2 and cut at 1 minute delay. The baby was moving and crying vigorously at that point, she was handed off to the waiting pediatric team. Then the placenta was delivered manually as intact and complete. Uterus was exteriorized and cleared of all clots and debris. Uterine incision was repaired with 0 Vicryl in a running locked fashion. A second imbricating layer was placed with another 0 Vicryl in a running locked fashion. There were some oozing points on the left of the middle of the incision. Those were repaired with [id number] stitches and excellent hemostasis was achieved. Cul-de-sac was irrigated with warm normal saline and suctioned. Ovaries and fallopian tubes were checked to be normal. Uterus was returned to the abdomen. Pelvis was irrigated with warm normal saline and suctioned. Incision was checked to be hemostatic again. Parietal peritoneum and the rectus muscles were reapproximated with 3-0 Vicryl in a running fashion. Excellent hemostasis was achieved. Rectus fascia was reapproximated with 0 Vicryl in a running fashion starting from both corners meeting in the midline. Subcuticular fat tissue was brought together with 3-0 Vicryl in a running fashion. The skin was closed with 4-0 Monocryl in a subcuticular fashion. No complications happened. I was and Dr. Golden was present during whole procedure. The patient received 2 g of cefazolin before surgery and the cord blood was collected for the blood banking per patient request. She was taken to recovery room in stable condition. My assistant county attorney, Dr. Golden, was needed for retraction, visualization, hemostasis control and aid in delivery of infant during the surgery. Job ID: [id number] [facility]
--- NOTE | 2022-05-19 11:33 | Anesthesiology Progress Note ---
Date of Service May 19, 2022 Anesthesia Post Procedure Vital Signs Vital Signs: Temp Pulse Resp BP Pulse Ox 05/19/22 10:43 55 L 18 128/84 100 05/19/22 10:03 62 18 140/87 97 05/19/22 09:53 62 20 131/88 97 05/19/22 09:46 64 16 132/85 96 05/19/22 09:33 62 18 118/79 97 05/19/22 09:23 64 16 118/78 100 05/19/22 10:13 56 L 16 128/84 99 05/19/22 09:13 36.4 C L 65 16 114/74 99 05/19/22 11:19 60 100 05/19/22 11:14 100 05/19/22 11:14 65 05/19/22 11:14 60 137/88 05/19/22 11:13 64 138/92 05/19/22 11:09 58 L 99 05/19/22 11:04 62 99 05/19/22 11:03 62 137/95 05/19/22 10:59 68 99 05/19/22 10:54 62 99 05/19/22 10:53 59 L 130/89 05/19/22 10:49 59 L 100 05/19/22 10:44 56 L 100 05/19/22 10:43 55 L 128/84 05/19/22 10:39 58 L 100 05/19/22 10:34 61 99 05/19/22 10:33 56 L 128/84 05/19/22 10:29 58 L 99 05/19/22 10:24 57 L 99 05/19/22 10:23 57 L 167/81 H 05/19/22 10:19 61 99 05/19/22 10:14 60 98 05/19/22 10:13 58 L 124/82 05/19/22 10:09 60 97 05/19/22 10:04 62 98 05/19/22 10:03 58 L 140/87 05/19/22 09:59 59 L 97 05/19/22 09:54 62 97 05/19/22 09:53 63 131/88 05/19/22 09:49 63 97 05/19/22 09:46 63 132/85 05/19/22 09:44 65 97 05/19/22 09:39 64 100 05/19/22 09:33 95 05/19/22 09:33 65 05/19/22 09:33 62 118/79 05/19/22 09:28 68 93 05/19/22 09:23 63 118/78 100 05/19/22 09:20 63 91 05/19/22 09:18 65 97 05/19/22 09:13 65 114/74 99 05/19/22 07:41 76 99 05/19/22 07:36 77 98 05/19/22 07:31 75 99 05/19/22 07:26 79 100 05/19/22 07:21 77 100 05/19/22 07:17 36.8 C 69 16 146/98 H 05/19/22 06:04 81 137/90 05/19/22 05:50 18 05/19/22 05:50 36.7 C 18 05/19/22 05:47 78 139/94 Transfer of Care Handoff Completed per policy Notes Mental Status: alert / awake / arousable Patient Amnestic to Procedure: Yes Nausea / Vomiting: adequately controlled Pain: adequately controlled Airway Patency, RR, SpO2: stable & adequate BP & HR: stable & adequate Hydration State: stable & adequate Neuraxial Anesthesia: was administered and sensory block is resolving Anesthetic Complications: no major complications apparent and Pt Satisfied with anesthetic care
[2022-05-19] MEDS: KETOROLAC 30 MG/ML VIAL IV PRN ×2 (13:19→18:40)
[2022-05-19] MEDS: SIMETHICONE 80 MG CHEW PO SCH ×3 (13:20→21:16)
[2022-05-19] MEDS ORDERED: OXYTOCIN 20 UNITS in LACTATED RINGER'S 1,000 ML IV SCH (18:00)
[2022-05-19] MEDS: DOCUSATE SODIUM 100 MG CAP PO SCH (21:16)
[2022-05-20] MEDS: KETOROLAC 30 MG/ML VIAL IV PRN (00:26)
[2022-05-20] MEDS ORDERED: KETOROLAC 30 MG/ML VIAL IV PRN (01:26)
[2022-05-20] MEDS ORDERED: diphenhydrAMINE 50 MG/ML VIAL IV PRN (01:26)
[2022-05-20] MEDS ORDERED: PROMETHAZINE HCL 25 MG in SODIUM CHLORIDE 0.9% 50 ML IV PRN (01:26)
[2022-05-20] MEDS ORDERED: MEPERIDINE HCL 50 MG/ML CARP IV PRN (01:26)
[2022-05-20] MEDS: IBUPROFEN 600 MG TAB PO PRN ×4 (04:45→18:39)
[2022-05-20] MEDS: oxyCODONE/ACETAMINOPHEN 5mg/325mg TAB PO PRN ×2 (06:15→10:10)
[2022-05-20 06:28] LABS: Basophils # (auto) 0.03 K/uL (0-0.2); Basophils % (auto) 0.3 %; Eosinophils # (auto) 0.04 K/uL (0-0.50); Eosinophils % (auto) 0.4 %; Hematocrit (blood only) 30.9 % (34.1-44.9); Immature Granulocytes # (auto) 0.03 K/uL (0.00-0.02); Immature Granulocytes % (auto) 0.3 %; Lymphocytes % (auto) 11.1 %; Mean Corpuscular Hemoglobin 33.4 pg (25.0-34.0); Mean Corpuscular Hgb Conc 35.6 g/dL (32.0-36.0); Mean Corpuscular Volume 93.9 fL (80.0-100.0); Mean Platelet Volume 10.2 fL (9.4-12.3); Monocytes # (auto) 0.89 K/uL (0.24-0.82); Monocytes % (auto) 9.9 %; Platelet Count 186 K/uL (130-400); RDW Coefficient of Variation 11.2 % (11.5-14.5); RDW Standard Deviation 38.1 fL (36.4-46.3); Red Blood Count 3.29 M/uL (3.93-5.22); White Blood Count 8.99 K/ul (4.8-10.8)
[2022-05-20] MEDS: DOCUSATE SODIUM 100 MG CAP PO SCH ×2 (08:16→20:40)
[2022-05-20] MEDS: SIMETHICONE 80 MG CHEW PO SCH ×4 (08:16→20:40)
[2022-05-20] MEDS: PRENATAL VITAMIN 1 TAB PO SCH (08:16)
--- NOTE | 2022-05-20 10:00 | Obstetrical Progress Note ---
Date of Service May 20, 2022 Subjective Ambulation: ambulating normally Voiding: no voiding problems Passing Gas:: Yes Diet Tolerance:: regular diet Feeding Type:: breast feeding Current Pain Level(1-10): 0 doing well plans for d/c in AM Physical Exam Constitutional WD/WN, vitals as above Gastrointestinal (Abdomen) Inspection/Auscultation: abdomen normal to inspection and + abdominal surgical incision Skin no rashes, warm and dry Neurologic patellar DTR's 2+ bilat, sensation intact abdomen soft and non-tender fundus firm below U Results & Data ([facility]) Vital Signs (Past 12 Hours) Vital Signs Temp Pulse Resp BP BP Pulse Ox O2 Del Method 05/20/22 08:10 36.9 C 67 16 115/77 Room Air 05/20/22 07:30 36.6 C 69 18 110/72 96 Room Air 05/20/22 01:30 18 98 05/20/22 03:30 36.6 C 72 18 115/70 98 Room Air 05/19/22 23:00 18 97 05/19/22 22:00 18 99 05/20/22 00:20 18 97 05/20/22 00:20 36.7 C 70 18 120/78 97 Room Air Laboratory Results Laboratory Results - last 48 hr 05/19/22 05/19/22 05/20/22 05:41 05:41 06:07 WBC 5.17 8.99 RBC 4.21 3.29 L Hgb 14.1 11.0 L D Hct 39.4 30.9 L MCV 93.6 93.9 MCH 33.5 33.4 MCHC 35.8 35.6 RDW Std Deviation 38.3 38.1 RDW Coeff of Mino 11.4 L 11.2 L Plt Count 258 186 MPV 9.9 10.2 Immature Gran % (Auto) 0.4 0.3 Neut % (Auto) 59.5 78.0 Lymph % (Auto) 26.5 11.1 [place]berson % (Auto) 12.0 9.9 Eos % (Auto) 1.0 0.4 Baso % (Auto) 0.6 0.3 Neut # (Auto) 3.08 7.00 H Lymph # (Auto) 1.37 1.00 L [place]on # (Auto) 0.62 0.89 H Eos # (Auto) 0.05 0.04 Baso # (Auto) 0.03 0.03 Immature Gran # (Auto) 0.02 0.03 H Blood Type O Positive Antibody Screen NEGATIVE
[2022-05-20] MEDS: ACETAMINOPHEN 325 MG TAB PO PRN ×2 (17:09→22:29)
[2022-05-20] MEDS ORDERED: bisacodyL 5 MG TABEC PO SCH (20:00)
[2022-05-20] MEDS: LACTATED RINGER'S 1,000 ML IV SCH ×2 (22:21→22:22)
[2022-05-20] MEDS ORDERED: bisacodyL 5 MG TABEC PO ONE (22:27)
[2022-05-21] MEDS: IBUPROFEN 600 MG TAB PO PRN ×3 (00:19→08:18)
[2022-05-21] MEDS: LACTATED RINGER'S 1,000 ML IV SCH (01:43)
[2022-05-21] MEDS: ACETAMINOPHEN 325 MG TAB PO PRN ×2 (04:48→08:18)
[2022-05-21 06:59] LABS: Hematocrit (blood only) 32.9 % (34.1-44.9); Hemoglobin 11.2 g/dl (12.0-16.0)
[2022-05-21] MEDS: SIMETHICONE 80 MG CHEW PO SCH (08:17)
[2022-05-21] MEDS: DOCUSATE SODIUM 100 MG CAP PO SCH (08:18)
[2022-05-21] MEDS: PRENATAL VITAMIN 1 TAB PO SCH (08:18)
[2022-05-21] MEDS ORDERED: bisacodyL 10 MG SUPP PR PRN (09:08)
--- NOTE | 2022-05-21 09:26 | Obstetrical Progress Note ---
Date of Service May 21, 2022 Subjective Ambulation: ambulating normally Voiding: no voiding problems Passing Gas:: Yes Diet Tolerance:: regular diet Lochia:: Small Feeding Type:: breast feeding Current Pain Level(1-10): 0 doing well plans for d/c Physical Exam Constitutional WD/WN, vitals as above Gastrointestinal (Abdomen) Inspection/Auscultation: abdomen normal to inspection and + abdominal surgical incision Musculoskeletal Extremities: extremities normal to inspection no edema. neg Betsy's Skin no rashes, warm and dry Neurologic patellar DTR's 2+ bilat, sensation intact Psychiatric A+Ox3, euthymic affect Results & Data ([facility]) Vital Signs (Past 12 Hours) Vital Signs Temp Pulse Resp BP Pulse Ox O2 Del Method 05/21/22 09:20 36.7 C 61 16 125/85 100 05/21/22 07:10 36.7 C 61 16 125/85 Room Air 05/21/22 04:00 36.6 C 74 16 123/71 100 Room Air 05/21/22 00:16 36.7 C 67 18 135/86 97 Room Air Laboratory Results 05/19/22 05/19/22 05/20/22 05:41 05:41 06:07 WBC 5.17 8.99 RBC 4.21 3.29 L Hgb 14.1 11.0 L D Hct 39.4 30.9 L MCV 93.6 93.9 MCH 33.5 33.4 MCHC 35.8 35.6 RDW Std Deviation 38.3 38.1 RDW Coeff of Mino 11.4 L 11.2 L Plt Count 258 186 MPV 9.9 10.2 Immature Gran % (Auto) 0.4 0.3 Neut % (Auto) 59.5 78.0 Lymph % (Auto) 26.5 11.1 [place] % (Auto) 12.0 9.9 Eos % (Auto) 1.0 0.4 Baso % (Auto) 0.6 0.3 Neut # (Auto) 3.08 7.00 H Lymph # (Auto) 1.37 1.00 L [place] # (Auto) 0.62 0.89 H Eos # (Auto) 0.05 0.04 Baso # (Auto) 0.03 0.03 Immature Gran # (Auto) 0.02 0.03 H Blood Type O Positive Antibody Screen NEGATIVE 05/21/22 06:44 WBC RBC Hgb 11.2 L Hct 32.9 L MCV MCH MCHC RDW Std Deviation RDW Coeff of Mino Plt Count MPV Immature Gran % (Auto) Neut % (Auto) Lymph % (Auto) [place] % (Auto) Eos % (Auto) Baso % (Auto) Neut # (Auto) Lymph # (Auto) Sanborn # (Auto) Eos # (Auto) Baso # (Auto) Immature Gran # (Auto) Blood Type Antibody Screen
--- NOTE | 2022-05-26 09:26 | Discharge Summary (DS) ---
DATE OF ADMISSION: 05/19/2022. DATE OF DISCHARGE: 05/21/2022. DETAILS OF ADMISSION: The patient is a 41-year-old G2, P1-0-0-1, at 39 weeks and 4 days of gestation with IVF , history of prior section, declined TOLAC/ and scheduled repeat C-se ction. She delivered a viable female infant on 05/19/2022, at 08:16 a.m. with repeat low transverse . Her surgery was uncomplicated. See dictated op note for details. On postop period, the patient was doing well, vital signs stable, afebrile, urine output was adequate. She was continuousl y monitored. On postoperative day #1, the patient was doing well, vital signs stable, afebrile, Fole y catheter was removed. She was ambulating, passing gas, tolerating regular diet and . Exam was unremarkable. Abdomen was soft and nontender. Incision clean, dry and intact. Extremities nontender, no edema. On postoperative day #2, the patient was doing well, vital signs stable, afebr ile, ambulating, tolerating regular diet, passing gas, . Pain was under control with or al medications. Physical exam was unremarkable. Incision was clean, dry and intact. Abdomen was so ft and nontender. Extremities nontender, no edema. Her postop H and H was ____ and repeat H and H w as 11.2/32.9. She desired to be discharged on postoperative day #2, 05/21/2022. Discharge instructi ons were given. Prescriptions were written for pain. She is to be seen in the office in a week. Job ID: [id number]
== END 2022-05-21 10:40 | disposition home or self-care (01) | DRG 788 ==
LOC: 4S1 05:34 → EDSTATUS 07:30 → 4E2 12:46
DX: Z37.0 Single live birth; O34.211 Maternal care for low transverse scar from previous cesarean delivery; Z3A.39 39 weeks gestation of pregnancy; Z87.891 Personal history of nicotine dependence